=== PATIENT | female | born 2000 | race Caucasian/White ===

== ENCOUNTER 2021-07-08 18:21 | Emergency (ER) | payer OTHER, SELFPAY ==
[2021-07-08 18:22] VITALS: BP 104/70; PULSE 116; RESP 18; TEMP 37.4; O2SAT 95; BMI 24.3
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
[2021-07-08 18:58] VITALS: BP 104/70; PULSE 116; RESP 18; TEMP 37.4; O2SAT 95
== END 2021-07-08 19:02 | disposition home or self-care (01) ==
PROVIDERS: Emergency Provider Emergency Medicine; PCP Registered Nurse Psychiatric/Mental Health
DX: Z04.1 Encounter for examination and observation following transport accident (principal); V89.2XXA Person injured in unspecified motor-vehicle accident, traffic, initial encounter
CPT/HCPCS: 99281